=== PATIENT | male | born 1955 | race Caucasian/White ===

== ENCOUNTER → 2016-11-30 | Day surgery (SDC) | payer OTHER ==
[~2016-11-30] VITALS: Ht 167.6 cm; Wt 81.2 kg
[~2016-11-30] MED LIST: ACET-2178 PO; ACETAMINOPHEN 325MG TABLET PO PRN; ACETAMINOPHEN WITH CODEINE 300/30MG TABLET PO SCH; ACETYLCHOLINE CHLORIDE INTRAOCULAR SOLUTION 1:100 ELECTROLYTE DILUENT IO ONE; BALANCED SALT IRRIG SOLN COMB1 500ML OP ONE; BUPIVACAINE HCL/PF 0.75% (7.5MG/ML) 10ML ONE; CIPROFLOXACIN 0.3% OPHTH SOLN 2.5ML LEFTEYE NR; CIPROFLOXACIN 0.3% OPHTH SOLN 2.5ML ONE; CYCLOPENTOLATE HCL 1% OPHTH DROPS 2ML LEFTEYE NR; CYCLOPENTOLATE HCL 1% OPHTH DROPS 2ML ONE; DICL75TA5 PO; FENTANYL CITRATE/PF 50MCG/ML 2ML VIAL ONE; GLUC1CAP28 PO; HYALURONATE SODIUM 14 MG/ML 0.85ML SYRINGE IO ONE; HYDROMORPHONE HCL/PF 2MG/ML CPJ IV PRN; KETOROLAC TROMETHAMINE 0.5% OPHTH 3ML LEFTEYE SCH; LABETALOL HCL 20MG/4ML CARPUJECT IV PRN; LACTATED RINGERS 1,000 ML IV SCH; LIDOCAINE HCL 2%/EPINEPHRINE 1:100,000 20 ML VIAL INFIL ONE; MEPERIDINE HCL/PF 25MG/ML CPJ IV PRN; METHYLPREDNISOLONE SOD SUCC 40 MG/ML VIAL ONE; MIDAZOLAM HCL 5 MG/5 ML VIAL ONE; MULT-1008 PO; ONDANSETRON HCL 4MG/2ML VIAL IV PRN; PHENYLEPHRINE 2.5% OPHTH 15 DROP/ML BOTTLE LEFTEYE NR; PHENYLEPHRINE HCL 2.5% OPHTH DROPS 2ML ONE; PILOCARPINE HCL 2% OPHTH DROPS 15ML ONE; TETRACAINE 0.5% OPHTH DROPS 4ML ONE; TOBRAMYCIN SULFATE 80MG/2ML 30ML ONE; TROPICAMIDE 1% OPHTH DROPS 15ML LEFTEYE SCH; TROPICAMIDE 1% OPHTH DROPS 15ML ONE; [UNRECOGNIZED DRUG - CODE] PO
[2016-11-30 11:44] VITALS: BP 128/74
== END | disposition home or self-care (01) ==
LOC: OR 07:12
PROVIDERS: ATTEND Ophthalmology
DX: H26.9 Unspecified cataract (principal)
CPT/HCPCS: 66984; 88300; J2250; J2920; J3010; J3260; J3490; J7120; V2632